=== PATIENT | female | born 1985 | race African-American/Black ===

== ENCOUNTER 2017-11-27 00:15 | Emergency (ER) | payer OTHER ==
[2017-11-27] MEDS: traMADol 50 MG TABLET PO (00:49)
[2017-11-27] MEDS: IPRATRPIUM/ALBUTEROL 0.5/2.5MG 3 ML NEBU. NEB (00:53)
== END 2017-11-27 01:17 | disposition home or self-care (01) ==
LOC: ER 00:15
DX: R07.81 Pleurodynia (principal); R05 Cough; M54.9 Dorsalgia, unspecified; F17.210 Nicotine dependence, cigarettes, uncomplicated; Z98.890 Other specified postprocedural states
CPT/HCPCS: 94640; 99283; J7620

== ENCOUNTER 2018-01-30 01:32 | Emergency (ER) | payer OTHER ==
[~2018-01-30] VITALS: Ht 157.5 cm; Wt 127.0 kg
[~2018-01-30 01:32] MED LIST: LORA10TA3 PO; RANI150T2 PO; TRAM50TA PO
[2018-01-30 01:45] VITALS: BP 168/79
[2018-01-30] MEDS ORDERED: PENI500T PO (02:06)
[2018-01-30] MEDS ORDERED: HYDR-963 PO (02:06)
[2018-01-30] MEDS ORDERED: AMOXICILLIN/K CLAV 875/125MG TABLET. PO ONE (02:30)
[2018-01-30] MEDS ORDERED: oxyCODONE/APAP 10/325 1 TAB TABLET PO ONE (02:30)
--- NOTE | 2018-01-30 04:15 | PHYS DOC ---
Past Medical History Past Medical History: No Pertinent History Past Surgical History: , Other Additional Past Surgical Histo: Right foot surgery Alcohol Use: None Drug Use: None Adult General Chief Complaint Chief Complaint: DENTAL PROBLEM HPI HPI Patient is a 32 year old [place] female presents with left upper incisor dental pain, tenderness. Patient's symptoms began 2 days ago. She has tried various [id number] treatment. No other acute symptoms or complaints.[] Review of Systems Review of Systems Review symptoms as per history of present illness. All other review symptoms are negative. All other systems were reviewed and found to be within normal limits, except as documented in this note. Current Medications Current Medications Current Medications Medications (Trade) Dose Ordered Sig/[place] Start Time Stop Time Status Last Admin Dose Admin Amoxicillin/ Clavulanate Potassium (Augmentin 875/ 125mg) 1 tab 1X ONCE 01/30/18 02:30 01/30/18 02:30 DC 01/30/18 02:11 1 TAB Oxycodone/ Acetaminophen (Percocet 10/325) 1 tab 1X ONCE 01/30/18 02:30 01/30/18 02:30 DC 01/30/18 02:12 1 TAB Allergies Allergies Allergies Coded Allergies Type Severity Reaction Last Updated Verified No Known Drug Allergies 11/27/17 No Physical Exam Physical Exam Constitutional: Well developed, well nourished, no acute distress, non-toxic appearance. [] HENT: Normocephalic, atraumatic, bilateral external ears normal, oropharynx moist, dental caries left upper incisor, but anterior lower molar,, nose normal. No drooling dysphonia or drooling.[] Eyes: PERRLA, EOMI, conjunctiva normal, no discharge. [] Neck: Normal range of motion, no tenderness, supple, no stridor. [] Neurologic: Alert and oriented X 3, normal motor function, normal sensory function, no focal deficits noted. [] Psychologic: Affect normal, judgement normal, mood normal. [] Current Patient Data Vital Signs Vital Signs Date Time Temp Pulse Resp B/P (MAP) Pulse Ox O2 Delivery O2 Flow Rate FiO2 01/30/18 01:45 98.3 86 20 168/79 (108) 100 Room Air 98.3 EKG EKG [] Radiology/Procedures Radiology/Procedures [] Course & Med Decision Making Course & Med Decision Making Pertinent Labs and Imaging studies reviewed. (See chart for details) [Antibiotics pain medication provided. Recommend close dental follow-up.] Dragon Disclaimer Dragon Disclaimer This electronic medical record was generated, in whole or in part, using a voice recognition dictation system. Departure Departure Impression: Primary Impression: Pain due to dental caries Disposition: HOME, SELF-CARE Condition: GOOD Patient Instructions: Dental Caries-Brief, Dental Pain, [id number] Additional Instructions: Please take antibiotics as directed and ibuprofen for pain and illness needed for additional relief. Follow-up with your dentist later this week as scheduled. Scripts Penicillin V Potassium (PENICILLIN V POTASSIUM) 500 Mg Tablet 1 TAB PO QID, #40 TAB Prov: CHICHO BERTRAND DO 01/30/18 Hydrocodone/Apap 10-325 (NORCO 10-325 TABLET) 1 Each Tablet 1 TAB PO Q8HRS PRN for PAIN MDD 6, #10 TAB 0 Refills Prov: CHICHO BERTRAND DO 01/30/18 CHICHO BERTRAND DO Jan 30, 2018 04:15
== END 2018-01-30 02:14 | disposition home or self-care (01) ==
LOC: ER 01:32
DX: K02.9 Dental caries, unspecified (principal); Z98.890 Other specified postprocedural states
CPT/HCPCS: 99283